=== PATIENT | female | born 1945 | race Caucasian/White ===

== ENCOUNTER 2016-08-15 23:36 | Inpatient (IN) | payer OTHER, MEDICARE ==
[2016-08-16] VITALS (7 sets, daily range): BP systolic 147–187; BP diastolic 72–89; PULSE 70–89; RESP 12–18; TEMP 97.4–98.2; O2SAT 90–98
[2016-08-16] MEDS ORDERED: ATOR20TA15 PO (00:12)
[2016-08-16] MEDS ORDERED: LOSA100T PO (00:12)
[2016-08-16] MEDS ORDERED: DICY20TA10 PO (00:12)
[2016-08-16] MEDS ORDERED: AMLO5TAB2 PO (00:12)
[2016-08-16] MEDS ORDERED: PANT40TA3 PO (00:12)
[2016-08-16] MEDS ORDERED: TIZA4CAP3 PO (00:12)
[2016-08-16] MEDS ORDERED: METH500T3 PO (00:12)
--- NOTE | 2016-08-16 00:16 | PD ---
HPI Chief Complaint: Fall Time Seen by Provider: 23:48 Travel History International Travel<30 days: No Contact w/Intl Traveler<30days: No Traveled to known affect area: No History of Present Illness HPI 71yo F with PMH of HTN, IBS presents to the ED with c/o right hip pain s/p fall today. Pt was walking her dog when he saw a cat and wrapped the leash around her leg and then she fell on her right hip and elbow. Pt is mainly complaining of pain in right hip. Denies any head injury, LOC, chest pain, sob, n/v, abdominal pain, focal weakness or numbness. Pt is not on any anticoagulation. PFSH Past Medical History Diabetes: Yes Patient Takes Glucophage: No Diminished Hearing: No Hypertension: Yes Social History Alcohol Use: No Tobacco Use: Yes Substance Use: No Allergies-Medications (Allergen,Severity, Reaction): Coded Allergies: Neomycin (Verified Allergy, Intermediate, 08/16/16) Amoxicillin (Verified Allergy, Mild, 08/16/16) Sulfa (Verified Allergy, Unknown, 08/16/16) Reported Meds & Prescriptions Reported Meds & Active Scripts Active Reported Methocarbamol 500 Mg Tab 1,000 Mg PO BID Losartan (Losartan Potassium) 100 Mg Tab 100 Mg PO DAILY Amlodipine (Amlodipine Besylate) 5 Mg Tab 5 Mg PO DAILY Tizanidine (Tizanidine HCl) 4 Mg Cap 4 Mg PO TID Dicyclomine (Dicyclomine HCl) 20 Mg Tab 20 Mg PO QID Pantoprazole (Pantoprazole Sodium) 40 Mg Tab 40 Mg PO DAILY Atorvastatin (Atorvastatin Calcium) 20 Mg Tab 20 Mg PO HS Review of Systems Except as stated in HPI: all other systems reviewed are Neg Physical Exam Narrative GENERAL: 71yo F not in distress. SKIN: Warm and dry. HEAD: Atraumatic. Normocephalic. EYES: Pupils equal and round at 3mm bilaterally. EOMI. No scleral icterus. No injection or drainage. ENT: No nasal bleeding or discharge. Mucous membranes pink and moist. NECK: No midline cervical spine ttp. CARDIOVASCULAR: Regular rate and rhythm. No murmur appreciated. RESPIRATORY: No accessory muscle use. Clear to auscultation. Breath sounds equal bilaterally. GASTROINTESTINAL: Abdomen soft, non-tender, nondistended. MUSCULOSKELETAL: +Skin tear right forearm. Mild ttp. Sensation intact. FROM right wrist and elbow. Distal pulse intact. RLE: Right hip is externally rotated with +TTP proximal femur. Sensation intact. DP 2+. NEUROLOGICAL: Awake and alert. No obvious cranial nerve deficits. Motor grossly within normal limits. Normal speech. PSYCHIATRIC: Appropriate mood and affect; insight and judgment normal. Data Data Last Documented VS Vital Signs Date Time Temp Pulse Resp B/P Pulse Ox O2 Delivery O2 Flow Rate FiO2 08/16/16 00:03 18 08/16/16 00:01 98.0 89 183/79 96 Orders Hip, Uni(Ap&Lat) W Ap Pelvis (08/15/16 ) Complete Blood Count With Diff (08/15/16 23:49) Basic Metabolic Panel (Bmp) (08/15/16 23:49) Prothrombin Time / Inr (Pt) (08/15/16 23:49) Act Partial Throm Time (Ptt) (08/15/16 23:49) Chest, Single Ap (08/16/16 ) Elbow, Limited (Ap&Lat) (08/16/16 ) Tetanus/Diphtheria Tox Adult (Tetanus/Di (08/16/16 00:30) Morphine Inj (Morphine Inj) (08/16/16 00:30) Consult Orthopedic (08/16/16 ) Amlodipine (Norvasc) (08/16/16 01:00) Losartan (Cozaar) (08/16/16 01:00) Romo's Traction (08/16/16 ) Urinary Catheter Insert/Apply (08/16/16 01:24) Morphine Inj (Morphine Inj) (08/16/16 02:00) Sodium Chlorid 0.9% 500 Ml Inj (Ns 500 M (08/16/16 02:15) Admit Order (Ed Use Only) (08/16/16 02:08) Admit To Inpatient (08/16/16 ) Vital Signs (Adult) Q4H (08/16/16 02:09) Activity Bed Rest (08/16/16 02:09) Director Game / Telemetry .CONTINUOUS (08/16/16 02:09) Diet Npo (08/16/16 Breakfast) Sodium Chloride 0.9% Flush (Ns Flush) (08/16/16 02:15) Sodium Chloride 0.9% Flush (Ns Flush) (08/16/16 09:00) Basic Metabolic Panel (Bmp) (08/17/16 06:00) Complete Blood Count With Diff (08/17/16 06:00) Case Management Consult (08/16/16 02:09) Naloxone Inj (Narcan Inj) (08/16/16 02:15) Inpatient Certification (08/16/16 ) Morphine Inj (Morphine Inj) (08/16/16 02:15) Labs Laboratory Tests Test 08/16/16 01:00 White Blood Count 18.1 TH/MM3 Red Blood Count 5.29 MIL/MM3 Hemoglobin 14.2 GM/DL Hematocrit 42.6 % Mean Corpuscular Volume 80.5 FL Mean Corpuscular Hemoglobin 26.8 PG Mean Corpuscular Hemoglobin 33.3 % Concent Red Cell Distribution Width 16.3 % Platelet Count 298 TH/MM3 Mean Platelet Volume 9.1 FL Neutrophils (%) (Auto) 92.2 % Lymphocytes (%) (Auto) 5.2 % Monocytes (%) (Auto) 2.5 % Eosinophils (%) (Auto) 0.1 % Basophils (%) (Auto) 0.0 % Neutrophils # (Auto) 16.7 TH/MM3 Lymphocytes # (Auto) 0.9 TH/MM3 Monocytes # (Auto) 0.5 TH/MM3 Eosinophils # (Auto) 0.0 TH/MM3 Basophils # (Auto) 0.0 TH/MM3 CBC Comment AUTO DIFF Differential Total Cells 100 Counted Neutrophils % (Manual) 95 % Band Neutrophils % 2 % Lymphocytes % 1 % Monocytes % 2 % Neutrophils # (Manual) 17.6 TH/MM3 Differential Comment FINAL DIFF MANUAL Platelet Estimate NORMAL Platelet Morphology Comment NORMAL Red Cell Morphology Comment NORMAL Prothrombin Time 11.1 SEC Prothromb Time International 1.0 RATIO Ratio Activated Partial 31.6 SEC Thromboplast Time Sodium Level 142 MEQ/L Potassium Level 3.6 MEQ/L Chloride Level 107 MEQ/L Carbon Dioxide Level 25.3 MEQ/L Anion Gap 10 MEQ/L Blood Urea Nitrogen 22 MG/DL Creatinine 0.96 MG/DL Estimat Glomerular Filtration 57 ML/MIN Rate Random Glucose 105 MG/DL Calcium Level 9.6 MG/DL [facility] Medical Decision Making Medical Screen Exam Complete: Yes Emergency Medical Condition: Yes Differential Diagnosis Right hip fracture vs. contusion vs. dislocation Narrative Course 71yo F with HTN and IBS right hip pain s/p mechanical fall while walking dog. Denies any dizziness, chest pain or sob. Xray right elbow negative. Xray right hip showed displaced right femoral neck fracture. Romo's traction ordered. CXR obtained for preop purposes. Showed linear scarring or atelectasis left lung. Discussed with orthopedic education liaison Dr. Grace regarding the patient. Labs are pending. Will sign out to next team to follow up labs and admit to medicine. Pt has elevated blood pressure but did not take her amlodipine or losartan today so gave her her usual dose. Diagnosis Primary Impression: Fracture of femoral neck, right, closed Qualified Code: S72.001A - Closed fracture of neck of right femur, initial encounter Admitting Information Admitting Physician Requests: it Pamela Hartman DO Aug 16, 2016 00:16
[2016-08-16] MEDS ORDERED: TETANUS/DIPHTHERIA TOXOID ADULT 0.5 ML VIAL IM ONE (00:30)
[2016-08-16] MEDS ORDERED: MORPHINE SULFATE 4 MG/ML INJ IV PUSH ONE ×2 (00:30→02:00)
--- NOTE | 2016-08-16 00:30 | RADRPT ---
EXAM DATE/TIME: 08/16/2016 00:05 [facility] COMPARISON: No previous studies available for comparison. INDICATIONS : Evaluate for pneumonia, pneumothorax, or communicable disease. Pre op right hip surgery. MEDICAL HISTORY : None. SURGICAL HISTORY : None. ENCOUNTER: Initial ACUITY: 1 day PAIN SCORE: 0/10 LOCATION: Bilateral chest FINDINGS: No consolidation. Cardiomegaly. Linear scarring in the left lung base versus mild subsegmental atelec tasis. Osseous structures are intact. CONCLUSION: Linear scarring or atelectasis left lung as above. Wale Guzman MD on August 16, 2016 at 0:28 Board Certified Radiologist. This report was verified electronically.
--- NOTE | 2016-08-16 00:31 | RADRPT ---
EXAM DATE/TIME: 08/16/2016 00:05 [facility] COMPARISON: No previous studies available for comparison. INDICATIONS : Right hip pain post fall. MEDICAL HISTORY : None. SURGICAL HISTORY : None. ENCOUNTER: Initial ACUITY: 1 day PAIN SCORE: 10/10 LOCATION: Right pelvis FINDINGS: The bone density is decreased. Iliac and femoral artery calcifications are noted. There is a displace d fracture noted through the right femoral neck identified. CONCLUSION: Displaced right femoral neck fracture. Wale Guzman MD on August 16, 2016 at 0:29 Board Certified Radiologist. This report was verified electronically.
--- NOTE | 2016-08-16 00:53 | RADRPT ---
EXAM DATE/TIME: 08/16/2016 00:43 [facility] COMPARISON: No previous studies available for comparison. INDICATIONS : Right elbow abrasion post fall. MEDICAL HISTORY : None. SURGICAL HISTORY : None. ENCOUNTER: Initial ACUITY: 1 day PAIN SCORE: 2/10 LOCATION: Right upper extremity FINDINGS: Two view examination of the right elbow demonstrates no soft tissue swelling, joint effusion, fractur e or dislocation. Bony mineralization is normal. CONCLUSION: No acute disease. Wale Guzman MD on August 16, 2016 at 0:52 Board Certified Radiologist. This report was verified electronically.
[2016-08-16] MEDS ORDERED: amLODIPine BESYLATE 5 MG TAB PO ONE (01:00)
[2016-08-16] MEDS ORDERED: LOSARTAN 25 MG TAB PO ONE (01:00)
[2016-08-16 01:14] LABS: AUTOMATED NEUTROPHIL # 16.7 TH/MM3 (1.8-7.7); EOSINOPHIL % 0.1 % (0.0-4.0); HEMATOCRIT 42.6 % (35.0-46.0); LYMPH % 5.2 % (9.0-44.0); LYMPHOCYTE # 0.9 TH/MM3 (1.0-4.8); MEAN CELL VOLUME 80.5 FL (80.0-100.0); MEAN CORPUSCULAR HEMOGLOBIN 26.8 PG (27.0-34.0); MEAN CORPUSCULAR HGB CONC 33.3 % (32.0-36.0); MONO % 2.5 % (0.0-8.0); NEUT % 92.2 % (16.0-70.0); PLATELET COUNT 298 TH/MM3 (150-450); RED BLOOD COUNT 5.29 MIL/MM3 (4.00-5.30); RED CELL DISTRIBUTION WIDTH 16.3 % (11.6-17.2); WHITE BLOOD COUNT 18.1 TH/MM3 (4.0-11.0)
[2016-08-16 01:18] LABS: HEMO FLAGS AUTO DIFF
[2016-08-16 01:25] LABS: APTT (PATIENT) 31.6 SEC (24.3-30.1); PROTHROMBIN TIME - PATIENT 11.1 SEC (9.8-11.6)
[2016-08-16 01:29] LABS: BICARBONATE 25.3 MEQ/L (21.0-32.0); POTASSIUM 3.6 MEQ/L (3.5-5.1)
[2016-08-16 01:52] LABS: BANDS 2 % (0-6); NEUTROPHIL # MANUAL DIFF 17.6 TH/MM3 (1.8-7.7); PLATELET ESTIMATE SMEAR NORMAL (NORMAL); PLATELET MORPHOLOGY NORMAL (NORMAL); POLYS (SEG NEUTROPHILS) 95 % (16-70); SCAN/DIFF FINAL DIFF MANUAL; WBC DIFF SAMPLE 100
--- NOTE | 2016-08-16 02:01 | PD ---
Data Data Last Documented VS Vital Signs Date Time Temp Pulse Resp B/P Pulse Ox O2 Delivery O2 Flow Rate FiO2 08/16/16 00:03 18 08/16/16 00:01 98.0 89 183/79 96 Orders Hip, Uni(Ap&Lat) W Ap Pelvis (08/15/16 ) Complete Blood Count With Diff (08/15/16 23:49) Basic Metabolic Panel (Bmp) (08/15/16 23:49) Prothrombin Time / Inr (Pt) (08/15/16 23:49) Act Partial Throm Time (Ptt) (08/15/16 23:49) Chest, Single Ap (08/16/16 ) Elbow, Limited (Ap&Lat) (08/16/16 ) Tetanus/Diphtheria Tox Adult (Tetanus/Di (08/16/16 00:30) Morphine Inj (Morphine Inj) (08/16/16 00:30) Consult Orthopedic (08/16/16 ) Amlodipine (Norvasc) (08/16/16 01:00) Losartan (Cozaar) (08/16/16 01:00) Romo's Traction (08/16/16 ) Urinary Catheter Insert/Apply (08/16/16 01:24) Npo After Midnight W/ Po Meds (08/16/16 Breakfast) Morphine Inj (Morphine Inj) (08/16/16 02:00) Labs Laboratory Tests Test 08/16/16 01:00 White Blood Count 18.1 TH/MM3 Red Blood Count 5.29 MIL/MM3 Hemoglobin 14.2 GM/DL Hematocrit 42.6 % Mean Corpuscular Volume 80.5 FL Mean Corpuscular Hemoglobin 26.8 PG Mean Corpuscular Hemoglobin 33.3 % Concent Red Cell Distribution Width 16.3 % Platelet Count 298 TH/MM3 Mean Platelet Volume 9.1 FL Neutrophils (%) (Auto) 92.2 % Lymphocytes (%) (Auto) 5.2 % Monocytes (%) (Auto) 2.5 % Eosinophils (%) (Auto) 0.1 % Basophils (%) (Auto) 0.0 % Neutrophils # (Auto) 16.7 TH/MM3 Lymphocytes # (Auto) 0.9 TH/MM3 Monocytes # (Auto) 0.5 TH/MM3 Eosinophils # (Auto) 0.0 TH/MM3 Basophils # (Auto) 0.0 TH/MM3 CBC Comment AUTO DIFF Differential Total Cells 100 Counted Neutrophils % (Manual) 95 % Band Neutrophils % 2 % Lymphocytes % 1 % Monocytes % 2 % Neutrophils # (Manual) 17.6 TH/MM3 Differential Comment FINAL DIFF MANUAL Platelet Estimate NORMAL Platelet Morphology Comment NORMAL Red Cell Morphology Comment NORMAL Prothrombin Time 11.1 SEC Prothromb Time International 1.0 RATIO Ratio Activated Partial 31.6 SEC Thromboplast Time Sodium Level 142 MEQ/L Potassium Level 3.6 MEQ/L Chloride Level 107 MEQ/L Carbon Dioxide Level 25.3 MEQ/L Anion Gap 10 MEQ/L Blood Urea Nitrogen 22 MG/DL Creatinine 0.96 MG/DL Estimat Glomerular Filtration 57 ML/MIN Rate Random Glucose 105 MG/DL Calcium Level 9.6 MG/DL MDM Medical Record Reviewed: Yes Supervised Visit with OMARI: No Narrative Course Please refer to the outgoing provider's note. Upon my assessment 1:50 AM the patient is resting comfortably. She does endorse some mild constant pain in the region of the right hip. 4 mg morphine had been ordered by the outgoing provider which will be administered at 2:00AM. CBC & BMP Diagram 08/16/16 01:00 Last 24 hours Impressions Elbow X-Ray 08/16/16 0000 Signed Impressions: Service Date/Time: Tuesday, August 16, 2016 00:43 - CONCLUSION: No acute disease. Wale Guzman MD Chest X-Ray 08/16/16 0000 Signed Impressions: Service Date/Time: Tuesday, August 16, 2016 00:05 - CONCLUSION: Linear scarring or atelectasis left lung as above. Wale Guzman MD Hip and Pelvis X-Ray 08/15/16 0000 Signed Impressions: Service Date/Time: Tuesday, August 16, 2016 00:05 - CONCLUSION: Displaced right femoral neck fracture. Wale Guzman MD Pt will be admitted to hospitalist service. Consultation to the orthopedics service has been placed. Case endorsed to Dr Grace by Dr Hartman. Case d/w Dr Marie. Diagnosis Primary Impression: Fracture of femoral neck, right, closed Qualified Code: S72.001A - Closed fracture of neck of right femur, initial encounter Admitting Information Admitting Physician Requests: Admit Neville Meyers MD Aug 16, 2016 02:01
[2016-08-16] MEDS ORDERED: SODIUM CHLORID 0.9% 500 ML INJ 500 ML IV ONE (02:15)
[2016-08-16] MEDS ORDERED: SODIUM CHLORIDE 0.9% FLUSH 10 ML FLUSH IV FLUSH PRN (02:15)
[2016-08-16] MEDS ORDERED: NALOXONE HCL 0.4 MG/ML AMP IV PRN ×2 (02:15→15:15)
--- NOTE | 2016-08-16 04:42 | HHI.HP ---
[facility] Service [facility] ([place], [place])ists Primary Care Physician Non-Staff Admission Diagnosis R Fem Neck Fx; Fall Diagnoses: (1) Fracture of femoral neck, right, closed Chief Complaint: fell down Travel History International Travel<30 Days: No Contact w/Intl Traveler <30 Da: No Traveled to Known Affected Are: No History of Present Illness History from patient, ER physician communication, and review of medical records. patient reported that she was walking her dog and saw a street cat and ran out of the street had which made her fall onto her right side. She denies hitting her head. Denies loss of consciousness. Denies any premonitory symptoms prior to this fall. On further questioning, patient also denies any recent fever/nausea/vomiting/ diarrhea/urinary burning or pain on urination. Denies any hematemesis/hematochezia/melena/hematuria. Denies any chest pain/palpitations/shortness of breath/focal weakness. She states that this is simply a trip and fall. Review of Systems Except as stated in HPI: all other systems reviewed are Neg Past Family Social History Past Medical History IBS htn Past Surgical History Tonsillectomy . Reported Medications Patient's medications listed in EMRreviewed. Patient stated that nothing has changed since her last hospitalization in May 2016 Allergies: Coded Allergies: Neomycin (Verified Allergy, Intermediate, 08/16/16) Amoxicillin (Verified Allergy, Mild, 08/16/16) Sulfa (Verified Allergy, Unknown, 08/16/16) Family History no CVA, no heart attack . Social History Tobacco: smokes cigarettes Alcohol: does not drink beer . Physical Exam Vital Signs Vital Signs Date Time Temp Pulse Resp B/P Pulse Ox O2 Delivery O2 Flow Rate FiO2 08/16/16 03:00 87 12 173/79 98 Nasal Cannula 2 08/16/16 02:59 85 18 187/89 98 Nasal Cannula 2 08/16/16 00:03 18 08/16/16 00:01 98.0 89 18 183/79 96 Physical Exam GENERAL: This is a well-nourished, well-developed patient, in no moderate distress or acute pain from the hip fracture SKIN: No rashes, ecchymoses or lesions. Cool and dry. HEAD: Atraumatic. Normocephalic. No temporal or scalp tenderness. EYES: No scleral icterus. No injection or drainage. ENT: Nose without bleeding, purulent drainage or septal hematoma. Airway patent. NECK: Trachea midline. No JVD CARDIOVASCULAR: Regular rate and rhythm without murmurs, gallops, or rubs. RESPIRATORY: Clear to auscultation. Breath sounds equal bilaterally.No wheezes, rales, or rhonchi. GASTROINTESTINAL: Abdomen soft, non-tender, nondistended. No guarding. MUSCULOSKELETAL: Extremities without clubbing, cyanosis, or edema. . Normal speech Neurology: Awake, alert, oriented. No focal deficits. Normal conversation. Laboratory Laboratory Tests Test 08/16/16 01:00 White Blood Count 18.1 Red Blood Count 5.29 Hemoglobin 14.2 Hematocrit 42.6 Mean Corpuscular Volume 80.5 Mean Corpuscular Hemoglobin 26.8 Mean Corpuscular Hemoglobin 33.3 Concent Red Cell Distribution Width 16.3 Platelet Count 298 Mean Platelet Volume 9.1 Neutrophils (%) (Auto) 92.2 Lymphocytes (%) (Auto) 5.2 Monocytes (%) (Auto) 2.5 Eosinophils (%) (Auto) 0.1 Basophils (%) (Auto) 0.0 Neutrophils # (Auto) 16.7 Lymphocytes # (Auto) 0.9 Monocytes # (Auto) 0.5 Eosinophils # (Auto) 0.0 Basophils # (Auto) 0.0 CBC Comment AUTO DIFF Differential Total Cells 100 Counted Neutrophils % (Manual) 95 Band Neutrophils % 2 Lymphocytes % 1 Monocytes % 2 Neutrophils # (Manual) 17.6 Differential Comment FINAL DIFF MANUAL Platelet Estimate NORMAL Platelet Morphology Comment NORMAL Red Cell Morphology Comment NORMAL Prothrombin Time 11.1 Prothromb Time International 1.0 Ratio Activated Partial 31.6 Thromboplast Time Sodium Level 142 Potassium Level 3.6 Chloride Level 107 Carbon Dioxide Level 25.3 Anion Gap 10 Blood Urea Nitrogen 22 Creatinine 0.96 Estimat Glomerular Filtration 57 Rate Random Glucose 105 Calcium Level 9.6 Result Diagram: 08/16/16 0100 08/16/16 0100 Imaging Last Impressions Elbow X-Ray 08/16/16 0000 Signed Impressions: Service Date/Time: Tuesday, August 16, 2016 00:43 - CONCLUSION: No acute disease. Wale Guzman MD he Impressions: Service Date/Time: Tuesday, August 16, 2016 00:05 - CONCLUSION: Linear scarring or atelectasis left lung as above. Wale Guzman MD Hip and Pelvis X-Ray 08/15/16 0000 Signed Impressions: Service Date/Time: Tuesday, August 16, 2016 00:05 - CONCLUSION: Displaced right femoral neck fracture. Wale Guzman MD . Course Assessment and Plan Problem List: (1) Fracture of femoral neck, right, closed ICD Code: S72.001A Status: Acute (2) Leukocytosis ICD Code: D72.829 Status: Acute Assessment and Plan Impression: Status post fallwith displaced right femoral neck fracture Leukocytosis with left shift Hypertension Irritable bowel syndrome Plan: Nothing by mouth. IV hydration. Pain control. Orthopedics was consulted from ER. Will follow-up recommendations. Resume home meds. As to Her leukocytosis, patient denies any fever. However stated she did urinate quite frequently in the past few days. Denies any urinary burning or pain on urination. Denies diarrhea. Therefore UA was checked. We'll start patient on cefazolin preop. Will then follow-up blood urine culture results and adjust antibiotics. DVT prophylaxiswith SCD. To start chemical prophylaxis postoperatively. Discussed Condition With Patient, ER physician, patient's nurse Physician Certification 2 Midnight Certification Type: Admission for Inpatient Services Order for Inpatient Services The services are ordered in accordance with Medicare regulations or non- Medicare payer requirements, as applicable. In the case of services not specified as inpatient-only, they are appropriately provided as inpatient services in accordance with the 2-midnight benchmark. Estimated LOS (days): 3 days is the estimated time the patient will need to remain in the hospital, assuming treatment plan goals are met and no additional complications. Post-Hospital Plan: Not yet determined Problem Qualifiers (1) Fracture of femoral neck, right, closed: Qualified Code: S72.001A - Closed fracture of neck of right femur, initial encounter Diego Marie MD Aug 16, 2016 04:41
[2016-08-16] MEDS: MORPHINE SULFATE 4 MG/ML INJ IV PUSH PRN ×4 (04:46→23:06)
[2016-08-16 05:09] LABS: BACTERIA, URINE RARE /hpf; BLOOD, URINE SMALL (NEG); GLUCOSE,URINE NEG (NEG); HYALINE CAST, URINE 4 /lpf (RARE); KETONE, URINE 40 mg/dL (NEG); MUCUS URINE MOD /lpf (OCC); PH, URINE 5.5 (5.0-8.5); RENAL EPITHELIAL CELLS <1 /hpf; SQUAMOUS EPITHELIAL CELL URINE <1 /hpf (0-5); URINE COLOR YELLOW (YELLW/STRAW)
[2016-08-16 05:13] LABS: COMMENT (UR) CATH-CULTURE IND; CULTURE IF INDICATED CATH CULTURE IND; NITRITE,URINE POS (NEG)
--- NOTE | 2016-08-16 07:17 | PD.ORT.PN ---
Subjective Subjective Remarks s/p fall while walking dog right hip pain Objective Vitals Vital Signs Date Time Temp Pulse Resp B/P Pulse Ox O2 Delivery O2 Flow Rate FiO2 08/16/16 05:43 98.2 70 18 171/81 95 08/16/16 05:10 18 08/16/16 03:00 87 12 173/79 98 Nasal Cannula 2 08/16/16 02:59 85 18 187/89 98 Nasal Cannula 2 08/16/16 00:03 18 08/16/16 00:01 98.0 89 18 183/79 96 Result Diagram: 08/16/16 0100 08/16/16 0100 Other Results Laboratory Tests Test 08/16/16 01:00 Prothrombin Time 11.1 SEC (9.8-11.6) Prothromb Time International 1.0 RATIO Ratio Imaging Last 24 hours Impressions Elbow X-Ray 08/16/16 0000 Signed Impressions: Service Date/Time: Tuesday, August 16, 2016 00:43 - CONCLUSION: No acute disease. Wale Guzman MD Chest X-Ray 08/16/16 0000 Signed Impressions: Service Date/Time: Tuesday, August 16, 2016 00:05 - CONCLUSION: Linear scarring or atelectasis left lung as above. Wale Guzman MD Objective Remarks RLE: +bucks traction. NVI wtih good motion of toes Assessment & Plan Assessment and Plan 1) Right Femoral Neck fx -npo -consents -surgery today with either DR Cabrera or Jonatan Valdez Aug 16, 2016 07:17
--- NOTE | 2016-08-16 07:52 | MB ---
cc: ALYSSA MCGOWAN ERIC DATE OF CONSULTATION: 08/16/2016 REASON FOR CONSULTATION Right femoral neck fracture. CONSULTING PHYSICIAN Dr. Miguel Yang HISTORY OF PRESENT ILLNESS Deloris is a 71-year-old female who was walking her dog. Her dog saw a cat out in the street. The dog went to run and maggie the cat. The leash got wrapped around her legs causing her to fall. She landed on her right hip. She had immediate right hip pain. She was unable to stand or ambulate. She is currently awake and alert in the emergency department. Her only complaint is her right hip. Pain is worse with movement and is improved with rest. She denies any dizziness, syncope or loss of consciousness. She had a mechanical fall. PAST MEDICAL HISTORY ILLNESSES 1. Hypertension. 2. IBS. SURGERIES Tonsillectomy. ALLERGIES 1. NEOMYCIN. 2. AMOXICILLIN. 3. SULFA. MEDICATIONS Please see EMR for complete list of inpatient medications. This was reviewed and is up-to-date. FAMILY HISTORY The patient denies any significant medical problems. She denies any history of coronary artery disease or problems with anesthesia. SOCIAL HISTORY The patient denies alcohol or drug use. She does smoke cigarettes. REVIEW OF SYSTEMS The patient denies headache, visual changes, neck pain, chest pain, shortness of breath, abdominal pain, nausea, vomiting or recent weight loss. She complains of right hip pain. Pain is worse with movement. She also denies bowel or bladder incontinence. PHYSICAL EXAMINATION GENERAL: The patient is a well-developed, well-nourished 71-year-old female in no acute distress. GENERAL: She is awake and alert. She is alert and oriented x3. VITAL SIGNS: Temperature 98.2, pulse 70, respirations 18, blood pressure 171/81. O2 sat is 95% on room air. HEAD: The patient is normocephalic. Pupils are equal. NECK: Soft, nontender. Trachea is midline. ABDOMEN: Soft, nontender, nondistended. EXTREMITIES: Examination of bilateral upper extremities reveals no significant pain with shoulder, elbow or wrist motion. She has intact sensation in all fingers. She has good capillary refill in all fingers. She has +5 sap bw developer strength. Radial pulses are palpable bilaterally. Examination of left leg reveals no pain with hip, knee or ankle motion. Skin is intact. Dorsalis pedis pulse is palpable. Sensation is intact. Examination of right leg reveals pain with any hip motion. She has no tenderness around her knee, tibia or ankle. Skin is intact. Dorsalis pedis pulse is palpable. Sensation is intact. X-RAYS X-rays of right hip were reviewed. X-rays reveal a displaced right femoral neck fracture. IMPRESSION 1. Hypertension. 2. IBS. 3. Displaced right femoral neck fracture. PLAN The treatment options were discussed with the patient. At this point I would recommend a right hip hemiarthroplasty. Risks of surgery include bleeding, infection, injuries to arteries, nerves and blood vessels, hip dislocation, leg length discrepancy, as well as medical complications including blood clot, stroke, heart attack and . All questions were answered. I explained her that either myself or Dr. Pantera Puente will likely be performing her surgery today. The patient is in agreement with this plan. A mid-level provider in my office, nurse practitioner or PA, may see this patient on a follow-up basis and continue to implement the objective of this plan including: Starting or adjusting medications, injections of muscle, tendon, bursa or joints, cast application, orthotic or brace application, physical therapy, further radiographic studies including x-ray, MRI, CT, ultrasounds or bone scan, vascular studies, neurologic studies, or other specialist consultations, and proceeding with surgical management as appropriate. MD AMADOU Neumann/BELEN /7:30 AM /7:37 AM
[2016-08-16] MEDS: LOSARTAN 50 MG TAB PO SCH (08:22)
[2016-08-16] MEDS: amLODIPine BESYLATE 5 MG TAB PO SCH (08:22)
[2016-08-16] MEDS: DICYCLOMINE HCL 20 MG TAB PO SCH ×4 (08:22→21:00)
[2016-08-16] MEDS: PANTOPRAZOLE SOD 40 MG DELAYED RELEASE TAB PO SCH (08:23)
--- NOTE | 2016-08-16 08:50 | HHI.PR ---
Subjective Remarks Follow-up right femoral neck fracture/UTI 08/16/16-patient seen and examined; currently nothing by mouth pending trip to the oral for repair of right hip. Complains of inadequate pain control. Brother by the bedside. Objective Vitals Vital Signs Date Time Temp Pulse Resp B/P Pulse Ox O2 Delivery O2 Flow Rate FiO2 08/16/16 07:37 97.4 70 16 173/85 91 08/16/16 05:43 98.2 70 18 171/81 95 08/16/16 05:10 18 08/16/16 03:00 87 12 173/79 98 Nasal Cannula 2 08/16/16 02:59 85 18 187/89 98 Nasal Cannula 2 08/16/16 00:03 18 08/16/16 00:01 98.0 89 18 183/79 96 Result Diagram: 08/16/16 0100 08/16/16 0100 Imaging Last Impressions Elbow X-Ray 08/16/16 0000 Signed Impressions: Service Date/Time: Tuesday, August 16, 2016 00:43 - CONCLUSION: No acute disease. Wale Guzman MD Chest X-Ray 08/16/16 0000 Signed Impressions: Service Date/Time: Tuesday, August 16, 2016 00:05 - CONCLUSION: Linear scarring or atelectasis left lung as above. Wale Guzman MD Hip and Pelvis X-Ray 08/15/16 0000 Signed Impressions: Service Date/Time: Tuesday, August 16, 2016 00:05 - CONCLUSION: Displaced right femoral neck fracture. Wale Guzman MD Objective Remarks GENERAL: NAD SKIN: Warm and dry. HEAD: Normocephalic. EYES: No scleral icterus. No injection or drainage. NECK: Supple, trachea midline. No JVD or lymphadenopathy. CARDIOVASCULAR: Regular rate and rhythm without murmurs, gallops, or rubs. RESPIRATORY: Breath sounds equal bilaterally. No accessory muscle use. GASTROINTESTINAL: Abdomen soft, non-tender, nondistended. MUSCULOSKELETAL: No cyanosis, or edema. Right lower extremity attached to Romo traction BACK: Nontender without obvious deformity. No CVA tenderness. A/P Problem List: (1) Fracture of femoral neck, right, closed ICD Code: S72.001A Status: Acute (2) Leukocytosis ICD Code: D72.829 Status: Acute (3) UTI (urinary tract infection) ICD Code: N39.0 Status: Acute (4) IBS (irritable bowel syndrome) ICD Code: K58.9 Status: Acute Assessment and Plan 1-year-old female with Right femoral neck fracture: X-rays reviewed, appreciate input from orthopedic surgery who plan for repair today 08/16/16. DVT prophylaxis post procedure. Continue with IV fluid hydration, analgesic/pain medication when necessary and nothing by mouth. UTI: Currently on Ancef pending urine culture Leukocytosis: 2/2 above infectious process Hypertension: Likely on Norvasc 5 mg daily, Cozaar 100 mg daily Irritable bowel syndrome: Continue with Bentyl DVT prophylaxis: Postprocedure per orthopedic surgery Problem Qualifiers (1) Fracture of femoral neck, right, closed: Qualified Code: S72.001A - Closed fracture of neck of right femur, initial encounter Miguel Yang MD Aug 16, 2016 08:50
[2016-08-16] MEDS ORDERED: SODIUM CHLORIDE 0.9% FLUSH 10 ML FLUSH IV FLUSH SCH (09:00)
[2016-08-16] MEDS ORDERED: METHOCARBAMOL 500 MG TAB PO SCH (09:00)
--- NOTE | 2016-08-16 11:40 | EKG ---
Date Performed: 08/16/2016 Time Performed: 08:25:41 PTAGE: 71 years EKG: POSSIBLE ECTOPIC ATRIAL RHYTHM MARKED LEFT AXIS DEVIATION MODERATE T-WAVE ABNORMALITY, CONS IDER ANTERIOR ISCHEMIA ABNORMAL ECG NO PREVIOUS TRACING DOCTOR: Ariel Hare Interpretating Date/Time 08/16/2016 11:39:26
[2016-08-16] MEDS ORDERED: TRANEXAMIC ACID INJ 860 MG in SODIUM CHLORIDE 0.9% INJ 100 ML IV SCH ×2 (12:15→17:30)
[2016-08-16] MEDS ORDERED: BUPIVACAINE LIPOSO PF 1.3% INJ 20 ML in SODIUM CHLORIDE 0.9% INJ 40 ML PERIART SCH (12:30)
[2016-08-16] MEDS ORDERED: COMMODE 3-IN-11 MIS (12:32)
[2016-08-16] MEDS ORDERED: WALKER WHEELS/F1 MIS (12:32)
[2016-08-16] MEDS ORDERED: GENTAMICIN SULFATE 80 MG/2 ML VIAL ONE (13:11)
[2016-08-16] MEDS ORDERED: ONDANSETRON HCL 4 MG/2 ML VIAL IV PUSH ONE (13:14)
[2016-08-16] MEDS ORDERED: ePHEDrine/NS 25 MG/5 ML SYR IV ONE (13:14)
[2016-08-16] MEDS ORDERED: PROPOFOL 200 MG/20 ML AMP IV ONE (13:14)
[2016-08-16] MEDS ORDERED: NEOSTIGMINE 3 MG/3 ML SYR IV ONE (13:14)
[2016-08-16] MEDS ORDERED: LACTATED RINGER'S 1000 ML INJ 1,000 ML IV ONE (13:14)
[2016-08-16] MEDS ORDERED: CLINDAMYCIN PHOS 900 MG/6 ML VIAL ONE (13:23)
[2016-08-16] MEDS ORDERED: CLINDAMYCIN PHOS 600 MG/4 ML VIAL ONE (13:36)
[2016-08-16] MEDS ORDERED: VANCOMYCIN HCL 1000 MG VIAL ONE (13:36)
[2016-08-16] MEDS ORDERED: diphenhydrAMINE HCL 50 MG/ML VIAL IV PRN (15:15)
[2016-08-16] MEDS ORDERED: ZOLPIDEM TARTRATE 5 MG TAB PO PRN (15:15)
[2016-08-16] MEDS ORDERED: SODIUM CHLORIDE 0.9% FLUSH 5 ML FLUSH IVF PRN (15:15)
[2016-08-16] MEDS ORDERED: BISACODYL 10 MG SUPP PR PRN (15:15)
[2016-08-16] MEDS ORDERED: ACETAMINOPHEN/HYDROcodone 325 MG/5 MG TAB PO PRN (15:15)
[2016-08-16] MEDS ORDERED: Post-op Orders (for Pharmacy) MISC XX ONE (15:15)
[2016-08-16] MEDS ORDERED: ONDANSETRON HCL 4 MG/2 ML VIAL IVP PRN (15:15)
[2016-08-16] MEDS ORDERED: ALUMINUM/MAGNESIUM/SIMETH 30 ML CUP PO PRN (15:15)
[2016-08-16] MEDS ORDERED: MORPHINE SULFATE 4 MG/ML INJ IV PUSH PRN (15:15)
--- NOTE | 2016-08-16 15:22 | PD.OP ---
cc: Pantera Puente MD Operative Report Date of Surgery: Aug 16, 2016 Preoperative Diagnosis: Right hip displaced femoral neck fracture Postoperative Diagnosis: Same Procedure: Right hip treatment of displaced femoral neck fracture with hemiarthroplasty Anesthesia: Gen. Surgeon: Pantera Puente Professor Of Voice(s): BLANCA Graves The surgical procedure was assisted by my Advanced Registered Nurse Practitioner. My BULK PICKER presence was necessary throughout this case for the manipulation and positioning of the surgical extremity. My BULK PICKER was assisting me throughout the duration of this procedure. The skill set of an Advance Registered Nurse Practitioner was medically necessary to complete this procedure. During the surgical case, the certified surgical tech/first assistant was working at the back table and the Advance Registered Nurse Practitioner was directly assisting me. Operation and Findings: IMPLANT DESCRIPTION: 1. Corail femoral stem size 11, no collar, standard offset. 2. Bipolar femoral head/neck outer diameter 46, inner diameter 28, +1.5. ESTIMATED BLOOD LOSS: 75 cc. JUSTIFICATION FOR PROCEDURE: This patient has a displaced femoral neck fracture. I met this patient preoperatively in the holding area. I reviewed my partners, Dr. Landry, consult. I reviewed the diagnosis with the patient and discussed treatment options. She understood the risks and benefits of surgery. She decided to move forward with surgical management. The patient understands the risks of surgery include but are not limited to injury to nerves, blood vessels, bleeding , infection, leg length discrepancy, continued pain, inability to ambulate, DVT , pulmonary embolus, pneumonia, stroke, heart attack, and . PROCEDURE: The patient was brought back to the operative theatre. Adequate anesthesia was obtained. The patient received intravenous clindamycin and vancomycin. The patient was carefully placed on the operative table in the lateral decubitus position with an axillary roll and a well-padded down leg. The lower extremity was prepped and draped in the usual sterile fashion. We proceeded with a standard curvilinear incision centered around the tip of the greater trochanter. We then dissected through the deep fascia and placed a Charnley retractor protecting the sciatic nerve. The greater trochanteric bursa was reflected. We then incised through the piriformis attachment and tagged this with a #2 FiberWire. We then incised through the capsule in a T- shaped fashion and tagged this with a #2 FiberWire as well. We identified a displaced femoral neck fracture. An osteotomy was performed through the residual femoral neck. This bone was then removed followed by removal of the femoral head. The acetabulum was inspected and adequate cartilage stock was identified. We then trialed the femoral head in the acetabulum. The proximal femur was prepared with a rongeur, then a box osteotome, then a canal finder followed by a lateralizing reamer. We sequentially broached the proximal femur. We calcar planed the proximal femur and irrigated removing any remnants of the bone. We trialed the hip with the broach in place. The final femoral stem was impacted into position. Leg lengths were evaluated. We evaluated stability of the hip with the hip in the "position of sleep" and the hip flexed up to 90 and internally rotated. We additionally tested both a "shuck" test and hip extension, confirming there was no undue tension while flexing the knee to 90 during full hip extension. The final bipolar head was impacted and the hip was reduced. Once again we irrigated. We then repaired the capsule and the piriformis with the FiberWire suture. The deep fascia was closed with a #2 Stratafix, followed by 2-0 Vicryl in the skin and sunny. The post-op plan is to weight-bear as tolerated. We will follow posterior total hip precautions, including the use of a canvas knee splint. DVT prophylaxis will be performed with SCDabdirizak, KAUSHIK villegas, early mobilization, and Lovenox followed by aspirin. Pantera Puente MD Aug 16, 2016 15:22
[2016-08-16] MEDS ORDERED: ASPI325T PO (15:24)
[2016-08-16] MEDS ORDERED: fentaNYL CITRATE 250 MCG/5 ML AMP ONE (15:24)
[2016-08-16] MEDS ORDERED: ENOX40P SQ (15:24)
[2016-08-16] MEDS ORDERED: NORC5TAB PO (15:24)
[2016-08-16] MEDS: SODIUM CHLOR 0.9% 1000 ML INJ 1,000 ML IV SCH (16:00)
--- NOTE | 2016-08-16 16:29 | RADRPT ---
EXAM DATE/TIME: 08/16/2016 15:55 [facility] COMPARISON: HIP RIGHT (AP&LAT 2/3VWS) W AP PELVIS, August 16, 2016, 0:05. INDICATIONS : Post op right hip surgery. MEDICAL HISTORY : Unobtainable. SURGICAL HISTORY : Unobtainable. ENCOUNTER: Subsequent ACUITY: 1 day PAIN SCORE: Non-responsive. LOCATION: Right hip. FINDINGS: The patient is status post right hip replacement with prosthesis in good position. CONCLUSION: Status post right hip replacement with prosthesis in good position. Jason Weber MD on August 16, 2016 at 16:24 Board Certified Radiologist. This report was verified electronically.
[2016-08-16] MEDS ORDERED: *RESP: ALBUTEROL 2.5 MG/3 ML NEB (PRN) PERIprocedural Use ONLY NEB ONE (16:46)
[2016-08-16] MEDS: SODIUM CHLORIDE 0.9% FLUSH 5 ML FLUSH IVF SCH (21:00)
[2016-08-16] MEDS: ATORVASTATIN 20 MG TAB PO SCH (21:00)
[2016-08-16] MEDS: CLINDAMYCIN INJ 900 MG in SODIUM CHLORIDE 0.9% INJ 100 ML IV SCH (22:40)
[2016-08-17] MEDS: SODIUM CHLOR 0.9% 1000 ML INJ 1,000 ML IV SCH ×3 (02:17→22:00)
[2016-08-17 06:02] LABS: BICARBONATE 21.8 MEQ/L (21.0-32.0); POTASSIUM 4.1 MEQ/L (3.5-5.1)
[2016-08-17 06:22] LABS: AUTOMATED NEUTROPHIL # 12.6 TH/MM3 (1.8-7.7); BASOPHIL % 0.1 % (0.0-2.0); HEMATOCRIT 36.8 % (35.0-46.0); HEMO FLAGS DIFF FINAL; LYMPH % 3.2 % (9.0-44.0); LYMPHOCYTE # 0.4 TH/MM3 (1.0-4.8); MEAN CELL VOLUME 84.4 FL (80.0-100.0); MEAN CORPUSCULAR HEMOGLOBIN 26.8 PG (27.0-34.0); MEAN CORPUSCULAR HGB CONC 31.8 % (32.0-36.0); MONO % 4.1 % (0.0-8.0); NEUT % 92.6 % (16.0-70.0); PLATELET COUNT 229 TH/MM3 (150-450); RED BLOOD COUNT 4.36 MIL/MM3 (4.00-5.30); RED CELL DISTRIBUTION WIDTH 16.6 % (11.6-17.2); WHITE BLOOD COUNT 13.6 TH/MM3 (4.0-11.0)
[2016-08-17] MEDS: CLINDAMYCIN INJ 900 MG in SODIUM CHLORIDE 0.9% INJ 100 ML IV SCH ×2 (06:30→15:42)
[2016-08-17] MEDS: MORPHINE SULFATE 4 MG/ML INJ IV PUSH PRN (07:15)
[2016-08-17] MEDS ORDERED: DIMETHICONE/OXYBENZONE/PADMIATE LIP BALM 4.25 GM ONE (08:23)
[2016-08-17] MEDS: LOSARTAN 50 MG TAB PO SCH (08:54)
[2016-08-17] MEDS: DICYCLOMINE HCL 20 MG TAB PO SCH ×4 (08:54→20:35)
[2016-08-17] MEDS: amLODIPine BESYLATE 5 MG TAB PO SCH (08:54)
[2016-08-17] MEDS: PANTOPRAZOLE SOD 40 MG DELAYED RELEASE TAB PO SCH (08:54)
[2016-08-17] MEDS: SODIUM CHLORIDE 0.9% FLUSH 5 ML FLUSH IVF SCH ×2 (08:54→20:35)
--- NOTE | 2016-08-17 10:23 | HHI.PR ---
Subjective Remarks Follow-up right femoral neck fracture/UTI 08/16/16-patient seen and examined; currently nothing by mouth pending trip to the oral for repair of right hip. Complains of inadequate pain control. Brother by the bedside. 08/17/16-patient seen and examined in PACU; she was sitting and having breakfast. Confused but stable. Objective Vitals Vital Signs Date Time Temp Pulse Resp B/P Pulse Ox O2 Delivery O2 Flow Rate FiO2 08/17/16 08:00 98.3 60 18 142/79 96 Nasal Cannula 2 08/17/16 07:00 62 14 166/77 97 Nasal Cannula 3 08/17/16 05:00 54 14 149/76 97 Nasal Cannula 3 08/17/16 04:00 97.9 69 13 141/83 97 Nasal Cannula 3 08/17/16 03:00 55 14 110/59 97 Nasal Cannula 3 08/17/16 02:00 57 14 109/65 96 Nasal Cannula 3 08/17/16 01:00 65 11 96/59 96 Nasal Cannula 3 08/17/16 00:00 98.1 68 14 112/59 96 Nasal Cannula 3 08/16/16 23:30 14 08/16/16 22:00 62 12 120/72 94 Nasal Cannula 3 08/16/16 21:00 58 11 147/75 95 Nasal Cannula 3 08/16/16 20:00 97.8 63 11 141/78 95 Nasal Cannula 3 08/16/16 19:00 79 12 145/80 95 Nasal Cannula 4 08/16/16 18:00 63 12 130/78 96 Nasal Cannula 4 08/16/16 17:30 61 12 133/73 95 Nasal Cannula 4 08/16/16 17:00 64 12 131/74 95 Nasal Cannula 4 08/16/16 16:45 64 12 135/75 94 Venturi Mask 6 50 08/16/16 16:30 64 12 127/78 92 Venturi Mask 6 50 08/16/16 16:15 75 12 144/83 93 Venturi Mask 6 50 08/16/16 16:00 70 12 144/83 96 Venturi Mask 6 50 08/16/16 15:47 97.0 76 12 148/85 96 Nasal Cannula 4 08/16/16 11:01 97.4 75 16 147/74 90 I/O 3/22/17 3/22/08/16/16 08/17/16 08/17/16 08/17/16 07:00 15:00 23:00 07:00 15:00 23:00 Intake Total 1500 ml 1690 ml Output Total 500 ml 450 ml 500 ml Balance -500 ml 1050 ml 1190 ml Intake Oral 100 ml Other 1500 ml 1590 ml Output Urine Total 500 ml Estimated Blood Loss 300 ml Other 150 ml 500 ml Result Diagram: 08/17/16 0525 08/17/16 0525 Imaging Last Impressions Hip and Pelvis X-Ray 08/16/16 1515 Signed Impressions: Service Date/Time: Tuesday, August 16, 2016 15:55 - CONCLUSION: Status post right hip replacement with prosthesis in good position. Jason Weber MD Elbow X-Ray 08/16/16 0000 Signed Impressions: Service Date/Time: Tuesday, August 16, 2016 00:43 - CONCLUSION: No acute disease. Wale Guzman MD Chest X-Ray 08/16/16 0000 Signed Impressions: Service Date/Time: Tuesday, August 16, 2016 00:05 - CONCLUSION: Linear scarring or atelectasis left lung as above. Wale Guzman MD Objective Remarks GENERAL: NAD SKIN: Warm and dry. HEAD: Normocephalic. EYES: No scleral icterus. No injection or drainage. NECK: Supple, trachea midline. No JVD or lymphadenopathy. CARDIOVASCULAR: Regular rate and rhythm without murmurs, gallops, or rubs. RESPIRATORY: Breath sounds equal bilaterally. No accessory muscle use. GASTROINTESTINAL: Abdomen soft, non-tender, nondistended. MUSCULOSKELETAL: No cyanosis, or edema. Right hip repair-neurovascular intact BACK: Nontender without obvious deformity. No CVA tenderness. Procedures Status post Right hip treatment of displaced femoral neck fracture with hemiarthroplasty 08/16/16 A/P Problem List: (1) Fracture of femoral neck, right, closed ICD Code: S72.001A Status: Acute (2) Leukocytosis ICD Code: D72.829 Status: Acute (3) UTI (urinary tract infection) ICD Code: N39.0 Status: Acute (4) IBS (irritable bowel syndrome) ICD Code: K58.9 Status: Acute Assessment and Plan 1-year-old female with Right femoral neck fracture: Status post Right hip treatment of displaced femoral neck fracture with hemiarthroplasty 08/16/16. Management per orthopedic surgery. Continue with analgesic/pain medication when necessary UTI: Currently on Ancef pending urine culture Leukocytosis: 2/2 above infectious process Hypertension: Likely on Norvasc 5 mg daily, Cozaar 100 mg daily Irritable bowel syndrome: Continue with Bentyl DVT prophylaxis: Lovenox Problem Qualifiers (1) Fracture of femoral neck, right, closed: Qualified Code: S72.001A - Closed fracture of neck of right femur, initial encounter Miguel Yang MD Aug 17, 2016 10:23
--- NOTE | 2016-08-17 13:14 | PD.ORT.PN ---
Subjective Post Op Day #: 1 Subjective Remarks Patient just arrived to the floor and is having minimal pain to the right hip. Family at bedside. Objective Vitals Vital Signs Date Time Temp Pulse Resp B/P Pulse Ox O2 Delivery O2 Flow Rate FiO2 08/17/16 12:00 98.0 68 18 145/77 95 Room Air 08/17/16 10:30 18 95 Room Air 08/17/16 10:00 18 98 08/17/16 08:00 98.3 60 18 142/79 96 Nasal Cannula 2 08/17/16 07:00 62 14 166/77 97 Nasal Cannula 3 08/17/16 05:00 54 14 149/76 97 Nasal Cannula 3 08/17/16 04:00 97.9 69 13 141/83 97 Nasal Cannula 3 08/17/16 03:00 55 14 110/59 97 Nasal Cannula 3 08/17/16 02:00 57 14 109/65 96 Nasal Cannula 3 08/17/16 01:00 65 11 96/59 96 Nasal Cannula 3 08/17/16 00:00 98.1 68 14 112/59 96 Nasal Cannula 3 08/16/16 23:30 14 08/16/16 22:00 62 12 120/72 94 Nasal Cannula 3 08/16/16 21:00 58 11 147/75 95 Nasal Cannula 3 08/16/16 20:00 97.8 63 11 141/78 95 Nasal Cannula 3 08/16/16 19:00 79 12 145/80 95 Nasal Cannula 4 08/16/16 18:00 63 12 130/78 96 Nasal Cannula 4 08/16/16 17:30 61 12 133/73 95 Nasal Cannula 4 08/16/16 17:00 64 12 131/74 95 Nasal Cannula 4 08/16/16 16:45 64 12 135/75 94 Venturi Mask 6 50 08/16/16 16:30 64 12 127/78 92 Venturi Mask 6 50 08/16/16 16:15 75 12 144/83 93 Venturi Mask 6 50 08/16/16 16:00 70 12 144/83 96 Venturi Mask 6 50 08/16/16 15:47 97.0 76 12 148/85 96 Nasal Cannula 4 I/O 08/16/16 08/16/16 08/16/16 08/17/16 08/17/16 08/17/16 07:00 15:00 23:00 07:00 15:00 23:00 Intake Total 1500 ml 1690 ml Output Total 500 ml 450 ml 500 ml Balance -500 ml 1050 ml 1190 ml Intake Oral 100 ml Other 1500 ml 1590 ml Output Urine Total 500 ml Estimated Blood Loss 300 ml Other 150 ml 500 ml Result Diagram: 08/17/1652408/17/16524 Imaging Last 24 hours Impressions Elbow X-Ray 08/16/16 0000 Signed Impressions: Service Date/Time: Tuesday, August 16, 2016 00:43 - CONCLUSION: No acute disease. Wale Guzman MD Chest X-Ray 08/16/16 0000 Signed Impressions: Service Date/Time: Tuesday, August 16, 2016 00:05 - CONCLUSION: Linear scarring or atelectasis left lung as above. Wale Guzman MD Procedures Right hip hemiarthroplasty Objective Remarks The patient's dressing is C/D/I. EHL/TA/G intact. Calf is soft and nontender. + SILT. 2+ pedal pulse. Minimal swelling. Assessment & Plan Ortho Post Op Day #: 1 Problem List: Assessment and Plan POD #1: Right hip hemiarthroplasty 1. WBAT RLE 2. Lovenox for DVT prophylaxis 3. Ice to the right hip PRN 4. Posterior hip precautions 5. Anticipatory discharge to SNF on Sunday. Neville Jean Aug 17, 2016 13:14
[2016-08-17 13:30] VITALS: BP 133/67; PULSE 66; RESP 18; TEMP 98.1; O2SAT 92
[2016-08-17] MEDS: ENOXAPARIN SODIUM 40 MG/0.4 ML SYRINGE SQ SCH (15:42)
[2016-08-17 19:10] VITALS: BP 144/71; PULSE 73; RESP 16; TEMP 98.1; O2SAT 93
[2016-08-17] MEDS: MULTIVITAMINS/MINERALS THERAPEUTIC TAB PO SCH (20:35)
[2016-08-17] MEDS: ATORVASTATIN 20 MG TAB PO SCH (20:35)
[2016-08-17] MEDS: DOCUSATE SODIUM 100 MG CAP PO SCH (20:35)
[2016-08-17 21:30] VITALS: PULSE 76
[2016-08-17] MEDS: ACETAMINOPHEN/HYDROcodone 325 MG/5 MG TAB PO PRN (23:11)
[2016-08-18] VITALS: BP 142/77; PULSE 68; RESP 17; TEMP 97.6; O2SAT 97
[2016-08-18 05:34] LABS: MEAN CELL VOLUME 81.6 FL (80.0-100.0); MEAN CORPUSCULAR HEMOGLOBIN 26.9 PG (27.0-34.0); PLATELET COUNT 191 TH/MM3 (150-450); RED BLOOD COUNT 4.29 MIL/MM3 (4.00-5.30); RED CELL DISTRIBUTION WIDTH 16.7 % (11.6-17.2); REVIEW FLAG FINAL
[2016-08-18 08:10] VITALS: BP 167/87; PULSE 74; RESP 16; TEMP 98; O2SAT 92
[2016-08-18] MEDS: LOSARTAN 50 MG TAB PO SCH (08:36)
[2016-08-18] MEDS: MULTIVITAMINS/MINERALS THERAPEUTIC TAB PO SCH ×2 (08:36→20:09)
[2016-08-18] MEDS: DICYCLOMINE HCL 20 MG TAB PO SCH ×4 (08:36→20:08)
[2016-08-18] MEDS: DOCUSATE SODIUM 100 MG CAP PO SCH ×2 (08:37→20:09)
[2016-08-18] MEDS: PANTOPRAZOLE SOD 40 MG DELAYED RELEASE TAB PO SCH (08:37)
[2016-08-18] MEDS: amLODIPine BESYLATE 5 MG TAB PO SCH (08:37)
[2016-08-18] MEDS: MAGNESIUM HYDROXIDE SUSP 30 ML CUP PO PRN (08:38)
[2016-08-18] MEDS: ACETAMINOPHEN/HYDROcodone 325 MG/5 MG TAB PO PRN (08:38)
[2016-08-18] MEDS: SODIUM CHLORIDE 0.9% FLUSH 5 ML FLUSH IVF SCH ×2 (08:43→20:08)
--- NOTE | 2016-08-18 09:53 | HHI.PR ---
Subjective Remarks Follow-up right femoral neck fracture/UTI 08/16/16-patient seen and examined; currently nothing by mouth pending trip to the oral for repair of right hip. Complains of inadequate pain control. Brother by the bedside. 08/17/16-patient seen and examined in PACU; she was sitting and having breakfast. Confused but stable. 08/18/16-patient seen and examined, stable and afebrile. No acute event overnight. Objective Vitals Vital Signs Date Time Temp Pulse Resp B/P Pulse Ox O2 Delivery O2 Flow Rate FiO2 08/18/16 00:00 97.6 68 17 142/77 97 08/17/16 21:30 76 08/17/16 19:10 98.1 73 16 144/71 93 08/17/16 13:30 98.1 66 18 133/67 92 08/17/16 12:00 98.0 68 18 145/77 95 Room Air 08/17/16 10:30 18 95 Room Air 08/17/16 10:00 18 98 I/O 08/17/16 08/17/16 08/17/16 08/18/16 08/18/16 08/18/16 07:00 15:00 23:00 07:00 15:00 23:00 Intake Total 1690 ml 699 ml 781 ml Output Total 500 ml 275 ml Balance 1190 ml 424 ml 781 ml Intake Oral 100 ml 240 ml IV Total 699 ml 541 ml Other 1590 ml Output Urine Total 275 ml Other 500 ml # Voids 2 Result Diagram: 08/18/16 0506 08/17/16 0525 Objective Remarks GENERAL: NAD SKIN: Warm and dry. HEAD: Normocephalic. EYES: No scleral icterus. No injection or drainage. NECK: Supple, trachea midline. No JVD or lymphadenopathy. CARDIOVASCULAR: Regular rate and rhythm without murmurs, gallops, or rubs. RESPIRATORY: Breath sounds equal bilaterally. No accessory muscle use. GASTROINTESTINAL: Abdomen soft, non-tender, nondistended. MUSCULOSKELETAL: No cyanosis, or edema. Right hip repair-neurovascular intact BACK: Nontender without obvious deformity. No CVA tenderness. Procedures Status post Right hip treatment of displaced femoral neck fracture with hemiarthroplasty 08/16/16 A/P Problem List: (1) Fracture of femoral neck, right, closed ICD Code: S72.001A Status: Acute (2) Leukocytosis ICD Code: D72.829 Status: Acute (3) UTI (urinary tract infection) ICD Code: N39.0 Status: Acute (4) IBS (irritable bowel syndrome) ICD Code: K58.9 Status: Acute Assessment and Plan 1-year-old female with Right femoral neck fracture: Status post Right hip treatment of displaced femoral neck fracture with hemiarthroplasty 08/16/16. Management per orthopedic surgery. Continue with analgesic/pain medication when necessary UTI: Currently on Ancef.. Pansensitive, would switch to by mouth antibiotic Leukocytosis: 2/2 above infectious process-resolved Hypertension: Continue Norvasc 5 mg daily, Cozaar 100 mg daily Irritable bowel syndrome: Continue with Bentyl DVT prophylaxis: Lovenox Discharge Planning Discharged to SNF 08/19/16 Problem Qualifiers (1) Fracture of femoral neck, right, closed: Qualified Code: S72.001A - Closed fracture of neck of right femur, initial encounter Miguel Yang MD Aug 18, 2016 09:53
[2016-08-18 11:02] VITALS: O2SAT 96
[2016-08-18 12:00] VITALS: BP 109/66; PULSE 51; RESP 16; TEMP 96.3; O2SAT 92
[2016-08-18 16:00] VITALS: BP 129/75; PULSE 56; RESP 18; TEMP 96.5; O2SAT 96
--- NOTE | 2016-08-18 16:09 | PD.ORT.PN ---
Subjective Subjective Remarks no complaints about the hip Objective Vitals Vital Signs Date Time Temp Pulse Resp B/P Pulse Ox O2 Delivery O2 Flow Rate FiO2 08/18/16 12:00 96.3 51 16 109/66 92 08/18/16 11:02 96 21 08/18/16 08:10 98.0 74 16 167/87 92 08/18/16 00:00 97.6 68 17 142/77 97 08/17/16 21:30 76 08/17/16 19:10 98.1 73 16 144/71 93 I/O 08/17/16 08/17/16 08/17/16 08/18/16 08/18/16 08/18/16 07:00 15:00 23:00 07:00 15:00 23:00 Intake Total 1690 ml 699 ml 781 ml Output Total 500 ml 275 ml Balance 1190 ml 424 ml 781 ml Intake Oral 100 ml 240 ml IV Total 699 ml 541 ml Other 1590 ml Output Urine Total 275 ml Other 500 ml # Voids 2 Result Diagram: 08/18/16 0506 08/17/16 0525 Imaging Last 24 hours Impressions Elbow X-Ray 08/16/16 0000 Signed Impressions: Service Date/Time: Tuesday, August 16, 2016 00:43 - CONCLUSION: No acute disease. Wale Guzman MD Chest X-Ray 08/16/16 0000 Signed Impressions: Service Date/Time: Tuesday, August 16, 2016 00:05 - CONCLUSION: Linear scarring or atelectasis left lung as above. Wale Guzman MD Procedures Right hip hemiarthroplasty Objective Remarks The patient's hip incision is C/D/I. no erythema. EHL/TA/G intact. Calf is soft and nontender. + SILT. 2+ pedal pulse. Minimal swelling. Assessment & Plan Assessment and Plan POD #2: Right hip hemiarthroplasty 1. WBAT RLE 2. Lovenox for DVT prophylaxis 3. Ice to the right hip PRN 4. Posterior hip precautions 5. Anticipatory discharge to SNF on Sunday. Pantera Puente MD Aug 18, 2016 16:09
[2016-08-18] MEDS: SODIUM CHLOR 0.9% 1000 ML INJ 1,000 ML IV SCH ×2 (16:10→18:00)
[2016-08-18] MEDS: ENOXAPARIN SODIUM 40 MG/0.4 ML SYRINGE SQ SCH (19:01)
[2016-08-18 20:00] VITALS: BP 147/72; PULSE 82; PULSE 83; RESP 16; TEMP 98.6; O2SAT 95
[2016-08-18] MEDS: ATORVASTATIN 20 MG TAB PO SCH (20:09)
[2016-08-19] VITALS: BP 140/80; PULSE 90; RESP 16; TEMP 98.1; O2SAT 95
[2016-08-19] MEDS: ACETAMINOPHEN/HYDROcodone 325 MG/5 MG TAB PO PRN (01:09)
[2016-08-19] MEDS: SODIUM CHLOR 0.9% 1000 ML INJ 1,000 ML IV SCH (04:57)
[2016-08-19 05:03] LABS: HEMATOCRIT 32.1 % (35.0-46.0); MEAN CELL VOLUME 81.9 FL (80.0-100.0); MEAN CORPUSCULAR HEMOGLOBIN 26.5 PG (27.0-34.0); MEAN CORPUSCULAR HGB CONC 32.4 % (32.0-36.0); PLATELET COUNT 175 TH/MM3 (150-450); RED BLOOD COUNT 3.92 MIL/MM3 (4.00-5.30); RED CELL DISTRIBUTION WIDTH 16.5 % (11.6-17.2); REVIEW FLAG FINAL; WHITE BLOOD COUNT 8.4 TH/MM3 (4.0-11.0)
--- NOTE | 2016-08-19 07:17 | PD.ORT.PN ---
Subjective Subjective Remarks POD 3 s/p right hip hemiarthroplasty doing well. slight confusion. has been out of bed to chair Objective Vitals Vital Signs Date Time Temp Pulse Resp B/P Pulse Ox O2 Delivery O2 Flow Rate FiO2 08/19/16 00:00 98.1 90 16 140/80 95 08/18/16 20:00 82 08/18/16 20:00 98.6 83 16 147/72 95 08/18/16 16:00 96.5 56 18 129/75 96 08/18/16 12:00 96.3 51 16 109/66 92 08/18/16 11:02 96 21 08/18/16 08:10 98.0 74 16 167/87 92 I/O 08/18/16 08/18/16 08/18/16 08/19/16 08/19/16 08/19/16 07:00 15:00 23:00 07:00 15:00 23:00 Intake Total 781 ml 480 ml 909 ml 1077 ml Balance 781 ml 480 ml 909 ml 1077 ml Intake Oral 240 ml 480 ml 480 ml 720 ml IV Total 541 ml 429 ml 357 ml # Voids 2 1 2 7 Result Diagram: 08/19/16 0422 08/17/16 0525 Imaging Last 24 hours Impressions Elbow X-Ray 08/16/16 0000 Signed Impressions: Service Date/Time: Tuesday, August 16, 2016 00:43 - CONCLUSION: No acute disease. Wale Guzman MD Chest X-Ray 08/16/16 0000 Signed Impressions: Service Date/Time: Tuesday, August 16, 2016 00:05 - CONCLUSION: Linear scarring or atelectasis left lung as above. Wale Guzman MD Procedures Right hip hemiarthroplasty Objective Remarks The patient's hip incision is C/D/I. no erythema. EHL/TA/G intact. Calf is soft and nontender. + SILT. 2+ pedal pulse. Minimal swelling. Assessment & Plan Assessment and Plan POD #3: Right hip hemiarthroplasty 1. WBAT RLE 2. Lovenox for DVT prophylaxis 3. Ice to the right hip PRN 4. Posterior hip precautions 5. Anticipatory discharge to SNF on Sunday. -f/u with [facility] in 2 weeks -ortho cleared for Jonatan Valdez Aug 19, 2016 07:17
[2016-08-19 08:00] VITALS: BP 179/80; PULSE 53; RESP 18; TEMP 97.5; O2SAT 94
--- NOTE | 2016-08-19 08:27 | HHI.PR ---
Subjective Remarks Follow-up right femoral neck fracture/UTI 08/16/16-patient seen and examined; currently nothing by mouth pending trip to the oral for repair of right hip. Complains of inadequate pain control. Brother by the bedside. 08/17/16-patient seen and examined in PACU; she was sitting and having breakfast. Confused but stable. 08/18/16-patient seen and examined, stable and afebrile. No acute event overnight. 08/19/16-patient seen and examined; reports she has a good night sleep and pain to right hip well controlled Objective Vitals Vital Signs Date Time Temp Pulse Resp B/P Pulse Ox O2 Delivery O2 Flow Rate FiO2 08/19/16 00:00 98.1 90 16 140/80 95 08/18/16 20:00 82 08/18/16 20:00 98.6 83 16 147/72 95 08/18/16 16:00 96.5 56 18 129/75 96 08/18/16 12:00 96.3 51 16 109/66 92 08/18/16 11:02 96 21 I/O 08/18/16 08/18/16 08/18/16 08/19/16 08/19/16 08/19/16 07:00 15:00 23:00 07:00 15:00 23:00 Intake Total 781 ml 480 ml 909 ml 837 ml Balance 781 ml 480 ml 909 ml 837 ml Intake Oral 240 ml 480 ml 480 ml 480 ml IV Total 541 ml 429 ml 357 ml # Voids 2 1 2 3 Result Diagram: 08/19/16 0422 08/17/16 0525 Objective Remarks GENERAL: NAD SKIN: Warm and dry. HEAD: Normocephalic. EYES: No scleral icterus. No injection or drainage. NECK: Supple, trachea midline. No JVD or lymphadenopathy. CARDIOVASCULAR: Regular rate and rhythm without murmurs, gallops, or rubs. RESPIRATORY: Breath sounds equal bilaterally. No accessory muscle use. GASTROINTESTINAL: Abdomen soft, non-tender, nondistended. MUSCULOSKELETAL: No cyanosis, or edema. Right hip repair-neurovascular intact BACK: Nontender without obvious deformity. No CVA tenderness. Procedures Status post Right hip treatment of displaced femoral neck fracture with hemiarthroplasty 08/16/16 A/P Problem List: (1) Fracture of femoral neck, right, closed ICD Code: S72.001A Status: Acute (2) Leukocytosis ICD Code: D72.829 Status: Acute (3) UTI (urinary tract infection) ICD Code: N39.0 Status: Acute (4) IBS (irritable bowel syndrome) ICD Code: K58.9 Status: Acute Assessment and Plan 71-year-old female with Right femoral neck fracture: Status post Right hip treatment of displaced femoral neck fracture with hemiarthroplasty 08/16/16. Management per orthopedic surgery. Continue with analgesic/pain medication when necessary . Patient is doing well UTI: Currently on Ancef.. Pansensitive, switch to Macrobid 100 mg by mouth twice a day Leukocytosis: 2/2 above infectious process-resolved Hypertension: Continue Norvasc 5 mg daily, Cozaar 100 mg daily Irritable bowel syndrome: Continue with Bentyl DVT prophylaxis: Lovenox Discharge Planning Discharged to SNF 08/19/16 Problem Qualifiers (1) Fracture of femoral neck, right, closed: Qualified Code: S72.001A - Closed fracture of neck of right femur, initial encounter Miguel Yang MD Aug 19, 2016 08:27
--- NOTE | 2016-08-19 08:30 | HHI.DS ---
Discharge Summary Admission Date Aug 16, 2016 at 02:10 Discharge Date: Aug 19, 2016 Admitting Diagnosis R Fem Neck Fx; Fall (1) Fracture of femoral neck, right, closed ICD Code: S72.001A (2) Leukocytosis ICD Code: D72.829 (3) UTI (urinary tract infection) ICD Code: N39.0 (4) IBS (irritable bowel syndrome) ICD Code: K58.9 Procedures Status post Right hip treatment of displaced femoral neck fracture with hemiarthroplasty 08/16/16 Brief History - From Admission History from patient, ER physician communication, and review of medical records. patient reported that she was walking her dog and saw a street cat and ran out of the street had which made her fall onto her right side. She denies hitting her head. Denies loss of consciousness. Denies any premonitory symptoms prior to this fall. On further questioning, patient also denies any recent fever/nausea/vomiting/ diarrhea/urinary burning or pain on urination. Denies any hematemesis/hematochezia/melena/hematuria. Denies any chest pain/palpitations/shortness of breath/focal weakness. She states that this is simply a trip and fall. CBC/BMP: 08/19/16 0422 08/17/16 0525 Significant Findings Laboratory Tests Test 08/17/16 08/18/16 08/19/16 05:25 05:06 04:22 White Blood Count 13.6 TH/MM3 (4.0-11.0) Mean Corpuscular Hemoglobin 26.8 PG 26.9 PG 26.5 PG (27.0-34.0) (27.0-34.0) (27.0-34.0) Mean Corpuscular Hemoglobin 31.8 % Concent (32.0-36.0) Neutrophils (%) (Auto) 92.6 % (16.0-70.0) Lymphocytes (%) (Auto) 3.2 % (9.0-44.0) Neutrophils # (Auto) 12.6 TH/MM3 (1.8-7.7) Lymphocytes # (Auto) 0.4 TH/MM3 (1.0-4.8) Chloride Level 111 MEQ/L (98-107) Blood Urea Nitrogen 19 MG/DL (7-18) Estimat Glomerular Filtration 74 ML/MIN (>89) Rate Random Glucose 107 MG/DL (74-106) Red Blood Count 3.92 MIL/MM3 (4.00-5.30) Hemoglobin 10.4 GM/DL (11.6-15.3) Hematocrit 32.1 % (35.0-46.0) Imaging Last Impressions Hip and Pelvis X-Ray 08/16/16 1515 Signed Impressions: Service Date/Time: Tuesday, August 16, 2016 15:55 - CONCLUSION: Status post right hip replacement with prosthesis in good position. Jason Weber MD Elbow X-Ray 08/16/16 0000 Signed Impressions: Service Date/Time: Tuesday, August 16, 2016 00:43 - CONCLUSION: No acute disease. Wale Guzman MD Chest X-Ray 08/16/16 0000 Signed Impressions: Service Date/Time: Tuesday, August 16, 2016 00:05 - CONCLUSION: Linear scarring or atelectasis left lung as above. Wale Guzman MD PE at Discharge GENERAL: NAD SKIN: Warm and dry. HEAD: Normocephalic. EYES: No scleral icterus. No injection or drainage. NECK: Supple, trachea midline. No JVD or lymphadenopathy. CARDIOVASCULAR: Regular rate and rhythm without murmurs, gallops, or rubs. RESPIRATORY: Breath sounds equal bilaterally. No accessory muscle use. GASTROINTESTINAL: Abdomen soft, non-tender, nondistended. MUSCULOSKELETAL: No cyanosis, or edema. Right hip repair-neurovascular intact BACK: Nontender without obvious deformity. No CVA tenderness. Hospital Course Patient was admitted with Right femoral neck fracture for which orthopedic surgery was consulted and she underwent hemiarthroplasty 08/16/16. Postoperatively Lovenox was started as DVT prophylaxis and PT was consulted. Pain management were provided accordingly. Patient was diagnosed with UTI for which she was started on IV antibiotic however prior to discharge. He is to by mouth Macrobid 100 mg twice a day. She was continued on her oral antihypertensive medications and remained normotensive throughout hospitalization. Other chronic medical conditions were treated accordingly. Vital remained stable throughout hospitalization and patient was discharged in stable condition. Pt Condition on Discharge: Fair Discharge Disposition: Discharge to SNF Discharge Time: > 30 minutes Discharge Instructions DIET: Follow Instructions for: Heart Healthy Diet Activities you can perform: Regular-No Restrictions Follow up Referrals: Orthopedics with Pantera Puente MD PCP Follow-up - 2-3 Days New Medications: Aspirin (Aspirin) 325 Mg Tab 325 MG PO DAILY Start Aspirin after Lovenox is completed. Prevent Blood Clot # 30 Ref 0 TAB Commode 3-in-1 (Commode 3-in-1) 1 Mis Mis 1 EA .ROUTE DIRECTED #1 Ref 0 EA Enoxaparin Inj (Lovenox Inj) 40 Mg/0.4 Ml Syr 40 MG SQ DAILY Start Aspirin after Lovenox is completed. Blood Clot Prevention # 10 Ref 0 SYRINGE Hydrocodone-Acetaminophen ([place]) 5-325 mg Tab 1-2 TAB PO Q4H PRN PAIN #40 Ref 0 TAB Lactobacillus Acidophilus (Lactinex) 1 Chew 1 TAB CHEW DAILY Nutritional Supplement #30 Ref 0 TAB Sennosides-Docusate Sodium (Valerie-Colace) 8.6-50 Mg Tab 1 TAB PO BID PRN Constipation #20 Ref 0 TAB Walker with Front Wheels (Walker with Front Wheels) 1 Mis Mis 1 EA .ROUTE DIRECTED #1 Ref 0 EA Nitrofurantoin Monohydrate Macrocrystals (Macrobid) 100 Mg Cap 100 MG PO BIDPC Infection #14 CAP Continued Medications: Amlodipine (Amlodipine) 5 Mg Tab 5 MG PO DAILY Blood Pressure Management #30 Ref 0 TAB Atorvastatin (Atorvastatin) 20 Mg Tab 20 MG PO HS Cholesterol Management #30 Ref 0 TAB Dicyclomine (Dicyclomine) 20 Mg Tab 20 MG PO QID Bowel Management #120 Ref 0 TAB Losartan (Losartan) 100 Mg Tab 100 MG PO DAILY Blood Pressure Management #30 Ref 0 TAB Methocarbamol (Methocarbamol) 500 Mg Tab 1000 MG PO BID Muscle Spasm #180 Ref 0 TAB Pantoprazole (Pantoprazole) 40 Mg Tab 40 MG PO DAILY Reflux #30 Ref 0 TAB Tizanidine (Tizanidine) 4 Mg Cap 4 MG PO TID Muscle Spasm Ref 0 CAP Miguel Yang MD Aug 19, 2016 08:30
[2016-08-19] MEDS ORDERED: PERI8.6T PO (08:32)
[2016-08-19] MEDS ORDERED: LACTCHW3 CHEW (08:32)
[2016-08-19] MEDS ORDERED: MACR100C2 PO (08:32)
[2016-08-19] MEDS: PANTOPRAZOLE SOD 40 MG DELAYED RELEASE TAB PO SCH (08:48)
[2016-08-19] MEDS: DOCUSATE SODIUM 100 MG CAP PO SCH (08:48)
[2016-08-19] MEDS: LOSARTAN 50 MG TAB PO SCH (08:49)
[2016-08-19] MEDS: DICYCLOMINE HCL 20 MG TAB PO SCH (08:49)
[2016-08-19] MEDS: amLODIPine BESYLATE 5 MG TAB PO SCH (08:49)
[2016-08-19] MEDS: MULTIVITAMINS/MINERALS THERAPEUTIC TAB PO SCH (08:49)
[2016-08-19] MEDS: MAGNESIUM HYDROXIDE SUSP 30 ML CUP PO PRN (08:50)
[2016-08-19] MEDS: SODIUM CHLORIDE 0.9% FLUSH 5 ML FLUSH IVF SCH (08:57)
[2016-08-19] MEDS ORDERED: NITROFURANTOIN MONOHYD MACROCR 100 MG CAP PO SCH (09:00)
[2016-08-19 09:30] VITALS: BP 156/81
== END 2016-08-19 12:10 | DRG 470 ==
LOC: NEPA 23:36 → NEDA 08-16 02:10 → NEPHCDU 08-16 04:17 → N06B 08-16 11:38
PROVIDERS: ADMIT Hospitalist; ATTEND Hospitalist
PROC: 0SRR0JA Replacement of Right Hip Joint, Femoral Surface with Synthetic Substitute, Uncemented, Open Approach (ICD-10-PCS; principal; 2016-08-16 13:45)
DX: S72.001A Fracture of unspecified part of neck of right femur, initial encounter for closed fracture (principal); N39.0 Urinary tract infection, site not specified; I10 Essential (primary) hypertension; F17.210 Nicotine dependence, cigarettes, uncomplicated; K58.9 Irritable bowel syndrome, unspecified; W01.0XXA Fall on same level from slipping, tripping and stumbling without subsequent striking against object, initial encounter; Y93.K1 Activity, walking an animal; Y92.9 Unspecified place or not applicable; Y99.9 Unspecified external cause status; Z88.1 Allergy status to other antibiotic agents; Z88.2 Allergy status to sulfonamides
CPT/HCPCS: 71010; 73070; 73502; 80048; 81001; 82948; 85007; 85025; 85027; 85610; 85730; 87077; 87086; 87186; 90471; 90714; 93005; 94664; 96374; C1776; C9290; J0690; J1580; J1650; J2270; J2405; J2710; J3010; J3370; J7030; J7040; J7120; J7613